=== PATIENT | male | born 1995 | race African-American/Black ===

== ENCOUNTER 2017-07-30 11:06 | Emergency (ER) | payer SELFPAY ==
--- NOTE | 2017-07-30 11:55 | EDPHY ---
H & P Time Seen by Provider: 07/30/17 11:43 HPI/ROS: Chief complaint. Wrist injury HPI. 22-year-old male with skateboarding yesterday fell off his skateboard. He fell on outstretched hand. He has pain on the underside of his right wrist with a little bit of swelling. No elbow or shoulder pain; no other injury. No previous fracture. He is right handed. ROS Constitutional. no fever/chills, no weakness Eyes. no problems with vision ENT. no sore throat, no nasal drainage Cardiovascular. no chest pain Respiratory. no shortness of breath, no cough Abdominal. no abdominal pain, no nausea/vomiting, no diarrhea . no problems urinating MS. right wrist pain Skin. no rash Lymph. no swollen glands Neuro. no headache, no dizziness, no difficulty walking or with speech Past Medical/Surgical History: Healthy Social History: Single, nonsmoker, no alcohol Smoking Status: Never smoked Physical Exam: General Appearance: Alert well-developed male mild distress vital signs are stable Eyes: Pupils equal and round no pallor or injection. ENT, Mouth: Mucous membranes are moist. Respiratory: There are no retractions, lungs are clear to auscultation. Cardiovascular: Regular rate and rhythm. Gastrointestinal: Abdomen is soft and nontender, no masses, bowel sounds normal. Neurological: Awake and alert, sensory and motor exams grossly normal. Skin: Warm and dry, no rashes. Musculoskeletal: Neck is supple nontender. Extremities right wrist mildly swollen but no obvious deformity. Tenderness inferior mid wrist. Slight tenderness in the anatomical snuffbox over the navicular bone. No deformity. Distal motor vascular sensitivity is intact Psychiatric: Patient is oriented X 3, there is no agitation. Constitutional: Initial Vital Signs Temperature (C) 37.0 C 07/30/17 11:09 Heart Rate 68 07/30/17 11:09 Respiratory Rate 16 07/30/17 11:09 Blood Pressure 124/68 H 07/30/17 11:09 O2 Sat (%) 95 07/30/17 11:09 O2 Delivery Mode Room Air Allergies/Adverse Reactions: No Known Allergies Allergy (Unverified 07/30/17 11:08) Home Medications: Medication Instructions Recorded NK [No Known Home Meds] 07/30/17 Medical Decision Making - Diagnostics Imaging Results: Imaging Impressions Wrist X-Ray 07/30/17 11:11 Impression: Normal. If there is a high clinical concern regarding an occult fracture, conservative management and short-term repeat radiographic follow-up in 7-14 days could be considered. X-ray right wrist interpreted by me is normal Procedures: Thumb spica splint is applied. Post splint application reviewed by me shows good anatomic position and distal motor vascular sensitivity to be intact ED Course/Re-evaluation: Patient and I discussed imaging study results, treatment plan including criteria for return importance of follow-up and further evaluation. He expresses understanding and agreement. We discussed occult fracture of the scaphoid bone Differential Diagnosis: I considered fracture, dislocation, occult fracture of the scaphoid Departure - Departure Disposition: Home, Routine, Self-Care Clinical Impression: Right wrist sprain Qualifiers: Encounter type: initial encounter Qualified Code(s): S63.501A - Unspecified sprain of right wrist, initial encounter Condition: Good Instructions: Wrist Sprain (ED) Additional Instructions: Ice and elevation next 24 hours. Ibuprofen 600 mg every 6 hours for comfort. Next on for 1 week. For continued pain follow-up with orthopedist if no further pain or symptoms you may discontinue the splint Referrals: NONE *PRIMARY CARE P,. [Primary Care Provider] - As per Instructions Jean Godfrey MD [Medical Doctor] - 5-7 days, if not improved
[2017-07-30 12:24] VITALS: BP 120/70; PULSE 62; RESP 14; TEMP 98.2; O2SAT 96
== END 2017-07-30 12:22 | disposition home or self-care (01) ==
LOC: EEVIPCON 11:06
DX: S63.501A Unspecified sprain of right wrist, initial encounter (principal); V00.131A Fall from skateboard, initial encounter; Y99.8 Other external cause status; Y93.51 Activity, roller skating (inline) and skateboarding